=== PATIENT | male | born 1955 | race Caucasian/White ===

== ENCOUNTER 2018-05-17 11:57 | Emergency (ER) | payer OTHER ==
[2018-05-17] MEDS ORDERED: Fluorescein Opthalmic Strip ONE (13:56)
[2018-05-17] MEDS ORDERED: Proparacaine 0.5% Opth 15 ML BOT ONE (13:59)
== END 2018-05-17 14:15 | disposition home or self-care (01) ==
LOC: ERS 11:57
DX: H10.9 Unspecified conjunctivitis (principal)
CPT/HCPCS: 99283

== ENCOUNTER 2018-12-02 15:32 | Emergency (ER) | payer OTHER ==
--- NOTE | 2018-12-02 16:26 | ULT ---
VENOUS DOPPLER ULTRASOUND OF THE LEFT LOWER EXTREMITY: 12/02/18 HISTORY: Left lower extremity edema. TECHNIQUE: Bryant scale ultrasound with color flow and spectral Doppler imaging of the deep venous system of the l eft lower extremity is performed. FINDINGS: There is good flow, compression, and augmentation noted in the left common femoral, femoral, deep fem oral, popliteal, posterior tibial and greater saphenous veins. IMPRESSION: No evidence of DVT in the left lower extremity. POS: OFF
== END 2018-12-02 16:12 | disposition home or self-care (01) ==
LOC: SCSER 15:32
DX: M79.662 Pain in left lower leg (principal); W01.198A Fall on same level from slipping, tripping and stumbling with subsequent striking against other object, initial encounter